=== PATIENT | female | born 1960 | race Caucasian/White ===

== ENCOUNTER 2024-05-05 13:10 | Emergency (ER) | payer BC ==
[2024-05-05] MEDS ORDERED: Ipratropium/Albuterol 3 ML NEB ONE ×2 (13:23→14:12)
[2024-05-05] MEDS ORDERED: methylPREDNISolone Sod Succ/PF 125 MG/2 ML VIAL ONE (13:23)
[2024-05-05] MEDS ORDERED: cefTRIAXone (ROCEPHIN) 2 GM VIAL ONE (13:23)
[2024-05-05 13:46] LABS: INR-International Normal Ratio 1.2; Prothrombin Time 14.8 sec (12.0-14.7)
[2024-05-05 13:47] LABS: PTT 35.3 sec (22.9-36.1)
[2024-05-05 13:50] LABS: Band 13 % (5-11); Eosinophils 2 % (0-10); Hematocrit 42.8 % (36.0-47.0); Lymphocytes 10 % (21-51); MDiff Complete? YES; Mean Corpuscular HGB CONC 32.8 g/dL (32.0-36.0); Mean Corpuscular Hemoglobin 30.6 pg (27.0-31.0); Mean Corpuscular Volume 93.2 fl (78.0-98.0); Mean Platelet Volume 8.9 fL (7.4-10.4); Monocytes 1 % (0-10); Neutrophil 70 % (42-75); Nucleated RBC (Manual Ct) 1 % (0); Platelet Adequacy Comment Appears Adequate; Platelet Count 210 10x3/uL (130-400); RBC Distribution Width 11.9 % (11.5-14.5); Red Blood Cell (RBC) Count 4.59 mill/uL (4.20-5.40); White Blood Cell (WBC) Count 14.5 10x3/uL (4.8-10.8)
[2024-05-05 13:52] LABS: ALT (SGPT) 16 U/L (8-55); AST (SGOT) 19 U/L (5-34); Albumin 3.7 g/dL (3.4-4.8); Alkaline Phosphatase 84 U/L (40-110); Anion Gap 14 mmol/L (10-20); BUN (Urea Nitrogen) 16 mg/dL (9.8-20.1); Bilirubin, Total 0.3 mg/dL (0.2-1.2); Calc. Creatinine Clearance 0 mL/min (70-130); Calcium 9.1 mg/dL (7.8-10.44); Carbon Dioxide 20 mmol/L (23-31); Chloride 106 mmol/L (98-107); Estimated GFR 68; Globulin 3.2 g/dL (2.4-3.5); Glucose 116 mg/dL (80-115); Potassium 3.4 mmol/L (3.5-5.1); Protein, Total 6.9 g/dL (5.8-8.1); Sodium 137 mmol/L (136-145)
[2024-05-05] MEDS ORDERED: Potassium Chloride 20 MEQ TAB ONE (14:12)
[2024-05-05] MEDS ORDERED: Azithromycin 500 MG VIAL ONE (14:16)
[2024-05-05] MEDS ORDERED: Ondansetron PF 4 MG/2 ML Vial ONE (14:33)
[2024-05-05 14:43] LABS: Magnesium 1.7 mg/dL (1.6-2.6)
== END 2024-05-05 16:25 | disposition home or self-care (01) ==
LOC: MADERS 13:10
DX: J44.1 Chronic obstructive pulmonary disease with (acute) exacerbation (principal); F17.210 Nicotine dependence, cigarettes, uncomplicated
CPT/HCPCS: 71045; 80053; 83605; 83735; 85025; 85379; 85610; 85730; 87040; 87428; 93005; 94760; 96365; 96367; 96375; J0456; J0696; J2405; J2919; J7620